=== PATIENT | female | born 1995 | race Caucasian/White ===

== ENCOUNTER 2023-07-20 04:20 | Inpatient (IN) | payer OTHER ==
--- NOTE | ~2023-07-20 | OR ---
[facility] [address], [place] [address] Draft DATE OF OPERATION: 07/20/2023 SURGEON: Jeffrey Martino MD PLATER APPRENTICE: Claire. PREOPERATIVE DIAGNOSES: Term , active labor, breech presentation, minimal care. POSTOPERATIVE DIAGNOSES: Term , active labor, breech presentation, minimal care, back down transverse lie. ANESTHESIA: General. ESTIMATED BLOOD LOSS: 700 mL. DRAINS: Gan catheter. PROCEDURE: Primary section with lower uterine segment incision with the J extension. INDICATIONS AND FINDINGS: The patient is a 27-year-old female, 3, para 2, who presented in active labor to the center here. She had approximately two visits in [place], but had not been seen in many months. 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 She did not have her other children. She was approximately 7 cm on arrival. She was counseled after evaluation revealed that the baby was breech on her presentation. When she was taken to the operating room, however, the baby was found to be a back down transverse after administration of her anesthesia. The little girl was delivered as a back down transverse converted to a breech via J extended lower segment incision. The Apgars were 8 and 9 and the weight was 8 pounds 2 ounces. The uterus, tubes, ovaries, and placenta otherwise were normal. PROCEDURE IN DETAIL: The patient was prepped and draped in the supine position. A Pfannenstiel skin incision PATIENT NAME: TREVON MAYO OPERATIVE REPORT DATE OF : [birth year] REPORT #: [id number] PHYSICIAN: JEFFREY MARTINO MD PCP: NO PRIMARY CARE PHYSICIAN REPORT IS CONFIDENTIAL AND NOT TO BE RELEASED WITHOUT AUTHORIZATION [facility] [address], [place] [address] Draft was made and carried down through the fascia. The incision was extended laterally. The inferior and superior fascial flaps were created. She had a large diastasis and the peritoneum was opened bluntly and the incision extended bluntly. The Arnel retractor was placed. She had a poorly developed lower segment. The incision was placed at the upper aspect of the peritoneal reflection and this was done with a knife. The incision was extended bluntly initially and the membranes ruptured with light meconium. However, on attempting to grasp the feet, it was a back down transverse. The J extension was made on the patient's left side and the feet were grasped and brought down and the baby was delivered as a breech. She was handed off to the pediatric staff in attendance. The placenta was removed manually and the uterus explored with a lap tape assuring no remaining fragments. The edges of the incision were identified and the uterus was closed in 2 layers using 0 Monocryl. The first layer was a running locking stitch and second was a vertical imbricating stitch. The abdomen was irrigated, inspected and good hemostasis was noted. The peritoneum was then identified, was closed with a running suture of 3-0 Vicryl. The muscles brought together with interrupted sutures of 0 Vicryl. Bleeding points were controlled with cautery. Fascia was then closed from each angle to midline with a running suture of 0 Vicryl. The subcu was reapproximated with interrupted sutures of 3-0 Vicryl. The skin was closed with sam. All sponge and needle counts were correct. She tolerated the procedure well and was taken to the recovery room in good condition. MD CHRISS Espinosa/LELAND /[id number] Copies: ~ PATIENT NAME: TREVON MAYO OPERATIVE REPORT DATE OF : [birth year] REPORT #: [id number] PHYSICIAN: JEFFREY MARTINO MD PCP: NO PRIMARY CARE PHYSICIAN REPORT IS CONFIDENTIAL AND NOT TO BE RELEASED WITHOUT AUTHORIZATION
[2023-07-20 05:43] LABS: HEMATOCRIT 33.5 % (35.0-50.0); HEMOGLOBIN 11.4 g/dL (12.0-18.0); MCH 30.5 (27-36); MCV 89.7 fl (81-99); RBC 3.73 M/ul (4.3-5.7); RDW 14.6 (10.5-15.0)
[2023-07-20 05:53] LABS: AMPHETAMINES, URINE POSITIVE (NEGATIVE); BARBITURATES, URINE NEGATIVE (NEGATIVE); BENZODIAZEPINE, URINE NEGATIVE (NEGATIVE); BUPRENORPHINE, URINE NEGATIVE (NEGATIVE); CANNABINOID, URINE NEGATIVE (NEGATIVE); COCAINE, URINE NEGATIVE (NEGATIVE); ECSTASY, URINE NEGATIVE (NEGATIVE); FENTANYL, URINE NEGATIVE (NEGATIVE); METHADONE, URINE NEGATIVE (NEGATIVE); OPIATES, URINE NEGATIVE (NEGATIVE); OXYCODONE, URINE NEGATIVE (NEGATIVE); PHENCYCLIDINE, URINE NEGATIVE (NEGATIVE)
--- NOTE | 2023-07-20 06:36 | NUR ---
07/20/23 0636 Heather Cunningham 0632: PT ARRIVES TO PACU WITH ORAL AIRWAY IN PLACE. NO RESPONSIVE TO TACTILE OR VERBAL STIMULUS.
[2023-07-20 06:44] LABS: ABO A; RH POSITIVE
[2023-07-20 06:45] LABS: ANTIBODY SCREEN NEGATIVE
[2023-07-20 09:05] VITALS: BP 117/75
[2023-07-21 05:32] LABS: HEMATOCRIT 26.1 % (35.0-50.0); HEMOGLOBIN 8.7 g/dL (12.0-18.0); MCH 30.1 (27-36); MCHC 33.5 g/dl (30-36); MCV 89.7 fl (81-99); RBC 2.91 M/ul (4.3-5.7); RDW 14.5 (10.5-15.0)
--- NOTE | 2023-07-21 08:48 | PR ---
[facility] [address] [place], [place] [address] Signed PP Progress Notes Datetime Report Generated by ZACHARY: 07/21/2023 08:48 SUBJECTIVE: [id number] Pain: Within Normal Limits Nausea/Vomiting: Denies Vital Signs: [id number] Vital Signs: Reviewed; Within Normal Limits EXAM: Ongoing Cardiovascular: Normal Respiratory: Normal Abdomen/Uterus: Abnormal Lochia: Normal Vulva/Perineum: Not Done Breasts: Not Done CVA Tenderness: Not Done Extremities: Normal Incision: Normal Progress: Not Applicable Exam Comments: Abdomen with active BS. Fundus firm, NT @ U-2. H/H 8.7/26.1, WBC 16.7, plat 280k IMPRESSION/PLAN/PROCEDURES: [id number] Impression: Normal Progression Other Plans: ambulate, shower Procedures: None Progress Notes: Doing OK but has not been out of bed other than just at the side of the bed. It is important for her to ambulate. Discussed her drug use and she is wanting to get into some kind of treatment. Will contact Francesca Escobar to see what options are available to her. She is wondering about whether or not she will be able to take the baby home but that is not our choice. This elmo be up to children's services. Also discussed her uterine incision and vaginal deliver contraindicated in the future. She is interested in sterilization. Discussed need to f/u and sign consents and this can be arranged for her. Signing Physician: Aydee Martino MD *Electronically Signed* 07/21/23847 AYDEE MARTINO MD PATIENT NAME: REMEDIOS MAYO Kulwant PROGRESS NOTE DATE OF : [birth year] PHYSICIAN: AYDEE MARTINO MD RPT #: [id number] REPORT IS CONFIDENTIAL AND NOT TO BE RELEASED WITHOUT AUTHORIZATION [address] [facility] [place], [place] [address] Signed Copies: ~ *Electronically Signed* 07/21/23847 AYDEE MARTINO MD PATIENT NAME: REMEDIOS MAYO Kulwant PROGRESS NOTE DATE OF : [birth year] PHYSICIAN: AYDEE MARTINO MD RPT #: [id number] REPORT IS CONFIDENTIAL AND NOT TO BE RELEASED WITHOUT AUTHORIZATION
[2023-07-21 10:06] LABS: RUBELLA ANTIBODY IGM <10.0 AU/mL (<=19.9)
[2023-07-21 11:04] LABS: HEPATITIS B SURFACE ANTIGEN Negative (Negative)
--- NOTE | 2023-07-22 08:46 | PR ---
[facility] [address] [facility] [place], [place] [address] Signed PP Progress Notes Datetime Report Generated by CPKulwant: 07/22/2023 08:46 SUBJECTIVE: [id number] Pain: Within Normal Limits Nausea/Vomiting: Denies Flatus: Yes Vital Signs: [id number] Vital Signs: Reviewed; Within Normal Limits EXAM: Ongoing Cardiovascular: Normal Respiratory: Normal Abdomen/Uterus: Abnormal Lochia: Normal Vulva/Perineum: Not Done Breasts: Not Done CVA Tenderness: Not Done Extremities: Normal Incision: Normal Progress: Not Applicable Exam Comments: Abdomen with active BS. Fundus firm, NT @ U-2. IMPRESSION/PLAN/PROCEDURES: [id number] Impression: Normal Progression Other Impression: Meth use Other Plans: ambulate, shower Procedures: None Progress Notes: Has spoken with Felicia about treatment and will hopefully undergo an assessment today. Baby still on antibx. Will increase ambulation today. Signing Physician: Aydee Martino MD Copies: ~ *Electronically Signed* 07/22/23 0846 AYDEE MARTINO MD PATIENT NAME: MAYOREMEDIOS NOVAK PROGRESS NOTE DATE OF : [birth year] PHYSICIAN: AYDEE MARTINO MD RPT #: [id number] REPORT IS CONFIDENTIAL AND NOT TO BE RELEASED WITHOUT AUTHORIZATION
--- NOTE | 2023-07-22 09:40 | NUR ---
ROUNDS. PT SLEEPING. DID NOT DISTURB. PROVIDED SILENT PRAYER.
[2023-07-22 16:22] LABS: T.PALLIDUM AB,IGG (FTA-ABS) Reactive (Non Reactive)
--- NOTE | 2023-07-23 08:46 | PR ---
[facility] [address] [place], [place] [address] Signed PP Progress Notes Datetime Report Generated by ZACHARY: 07/23/2023 08:46 SUBJECTIVE: [id number] Pain: Within Normal Limits Nausea/Vomiting: Denies Flatus: Yes Vital Signs: [id number] Vital Signs: Reviewed; Within Normal Limits EXAM: Ongoing Cardiovascular: Not Done Respiratory: Not Done Abdomen/Uterus: Abnormal Lochia: Normal Vulva/Perineum: Not Done Breasts: Not Done CVA Tenderness: Not Done Extremities: Normal Incision: Normal Progress: Not Applicable Exam Comments: Fundus firm, NT @ U-2. FTA POSITIVE today--no reflex to RPR by lab IMPRESSION/PLAN/PROCEDURES: [id number] Impression: Normal Progression Other Impression: FTA Pos Other Plans: Tiffanie Benzathine 2.4 mil units IM Procedures: None Progress Notes: Discussed positive FTA results with pt. She did have a neg RPR in Nov. She denies any sores or rashes. She reports a fever a few days before delivery. Suspect she has early syphilis and she should respond to IM Tiffanie Benzathine. Unfortunately, the RPR titer has not been done and the lab thought it was unnecessary. Baby will require treatment. She desires discharge. She could become a boarder if she wishes. Discussed her treatment plans and she does not have any plans in place at this time. Signing Physician: Aydee Martino MD *Electronically Signed* 07/23/23 0846 AYDEE MARTINO MD PATIENT NAME: REMEDIOS MAYO PROGRESS NOTE DATE OF : [birth year] PHYSICIAN: AYDEE MARTINO MD RPT #: [id number] REPORT IS CONFIDENTIAL AND NOT TO BE RELEASED WITHOUT AUTHORIZATION
[2023-07-23 09:19] LABS: HIV-1 QNT BY NAAT (COPIES/ML) Not Detected cpy/mL (()); HIV-1 QNT BY NAAT INTERP Not Detected (Not Detected); HIV-1 QNT NAAT (LOG COPIES/ML) Not Detected (())
[2023-07-23 12:22] LABS: N. GONORRRHOEAE BY PCR NOT DETECTED (NOT DETECT)
[2023-07-26 02:57] LABS: RUBELLA ANTIBODY IGG 4.3 IU/mL (())
[2023-07-28 10:33] LABS: HEPATITIS C AB CIA INTERP NEGATIVE
[2023-07-28 10:33] LABS: RAPID PLASMA REAGIN (RPR) NON-REACTIVE
[2023-07-28 10:34] LABS: HEPATITIS C ANTIBODY CIA INDEX 0.06
== END 2023-07-23 12:20 | disposition home or self-care (01) | DRG 787 ==
LOC: FBCO 04:20 → FBC 04:36
PROVIDERS: ADMIT Obstetrics & Gynecology; ATTEND Obstetrics & Gynecology
PROC: 4A033R1 Measurement of Arterial Saturation, Peripheral, Percutaneous Approach (ICD-10-PCS; 2023-07-20)
PROC: 10D00Z1 Extraction of Products of Conception, Low, Open Approach (ICD-10-PCS; principal; 2023-07-20 05:06)
DX: O32.1XX0 Maternal care for breech presentation, not applicable or unspecified (principal); O98.12 Syphilis complicating childbirth; O99.324 Drug use complicating childbirth; Z3A.39 39 weeks gestation of pregnancy; Z37.0 Single live birth; O32.2XX0 Maternal care for transverse and oblique lie, not applicable or unspecified; F15.90 Other stimulant use, unspecified, uncomplicated; A51.9 Early syphilis, unspecified; O99.02 Anemia complicating childbirth; O77.0 Labor and delivery complicated by meconium in amniotic fluid
CPT/HCPCS: 01961; 36415; 76942; 80307; 82803; 85027; 86762; 86780; 86803; 86850; 86900; 86901; 87340; 87491; 87536; 90707; A9270; J0330; J0456; J0561; J0690; J1885; J2001; J2210; J2274; J2405; J2590; J2704; J2795; J7121